=== PATIENT | female | born 1940 ===

== ENCOUNTER 2021-09-23 10:36 | Emergency (ER) | payer BC, OTHER ==
[~2021-09-23] VITALS: Ht 162.6 cm; Wt 49.9 kg
[2021-09-23] MEDS ORDERED: ROCURONIUM 10MG/ML 10ML VIAL IV ONE (10:39)
[2021-09-23] MEDS ORDERED: ETOMIDATE (2MG/ML) 20ML VIAL IV ONE (10:39)
[2021-09-23] MEDS ORDERED: MIDAZOLAM DRIP 50 mg/50mL 50 ML IV SCH (10:40)
[2021-09-23] MEDS ORDERED: NOREPINEPHRINE 8 MG/250ML KIT 250 ML IV ONE (10:57)
[2021-09-23 12:13] LABS: Hematocrit 35.6 % (36.0-46.0); Hemoglobin 10.2 g/dL (12.2-16.2); Mean Corpuscular Hemoglobin 31.7 pg (28.0-32.0); Mean Corpuscular Hgb Conc. 28.7 g/dL (32.0-36.0); Mean Corpuscular Volume 110.3 fL (80.0-100.0); Red Blood Cells 3.22 10^6/uL (4.0-5.20); Red Cell Distribution Width 17.4 % (11.8-14.3); White Blood Cell 2.2 10^3/uL (4.4-10.8)
[2021-09-23 12:31] LABS: Potassium 5.3 mmol/L (3.5-5.1)
[2021-09-23 12:40] LABS: Albumin 1.4 g/dL (3.4-5.0); Bilirubin, Total 1.2 mg/dL (0.2-1.0); Calcium 8.7 mg/dL (8.5-10.1); Magnesium 2.6 mg/dL (1.6-2.6); Total Protein 4.9 g/dL (6.4-8.2)
[2021-09-23 13:12] LABS: Lactic Acid w/Reflex 14.8 mmol/L (0.4-2.0)
[2021-09-23] MEDS ORDERED: NOREPINEPHRINE 8 MG/250ML KIT 250 ML IV SCH (13:30)
[2021-09-23 13:43] LABS: Basophils % (manual) 0 (0.0-2.0); Blast Cells 0; Eosinophils % (manual) 0 (0-7); Promyelocytes % 0; Reactive Lymphocytes 0
[2021-09-23 13:47] LABS: Band Neutrophils % (manual) 26; Lymphocytes % (manual) 12 (10.0-50.0); Metamyelocytes % 4; Monocytes % (manual) 19 (0-12); Myelocytes % 2
[2021-09-23] MEDS ORDERED: VANCOMYCIN 1GM/250ML 250 ML IV ONE (14:45)
[2021-09-23] MEDS ORDERED: CEFEPIME 1 GM in SODIUM CHL 0.9% 50 ML IV ONE (14:45)
[2021-09-23] MEDS ORDERED: VANCOMYCIN PER PHARMACY 0 MG IV SCH (14:45)
[2021-09-23] MEDS ORDERED: SODIUM CHLORIDE 0.9% 1,000 ML IV ONE (14:45)
[2021-09-23] MEDS ORDERED: DOBUTamine 1000MCG/ML 250 ML IV SCH (14:45)
[2021-09-23 14:47] VITALS: BP 61/35
== END 2021-09-23 15:15 ==
LOC: EDBD 10:36 → ER 10:36
DX: I46.9 Cardiac arrest, cause unspecified (principal)
CPT/HCPCS: 31500; 36415; 36600; 71045; 80053; 82805; 83605; 83735; 84484; 85007; 85027; 85379; 86850; 86900; 86901; 87040; 87070; 87077; 87186; 87205; 92950; 93005; 96365; 99291; J0692; J1250; 94002